=== PATIENT | female | born 2000 | race Caucasian/White ===

== ENCOUNTER 2020-12-29 15:30 | Inpatient (IN) | payer OTHER ==
[~2020-12-29] VITALS: Ht 167.6 cm; Wt 113.6 kg
[2020-12-29] MEDS ORDERED: METF500 PO (16:19)
[2020-12-29] MEDS ORDERED: PRENATAL TABLE1 EAC2 PO (16:19)
[2020-12-29] MEDS ORDERED: IRON18 MG PO (16:19)
[2020-12-29] MEDS ORDERED: ACET325 (16:20)
[2020-12-29] MEDS ORDERED: PYRI100 PO (16:20)
[2020-12-29] MEDS ORDERED: UNASYN (16:20)
[2020-12-29 16:29] LABS: SARS-Cov-2 (COVID-19) PCR, MMC NEGATIVE (NEGATIVE)
[2020-12-29 16:46] LABS: BASOPHILS ABSOLUTE AUTO 0.04 K/mm3 (0.00-0.23); BASOPHILS PERCENT AUTO 0 % (0-2); EOSINOPHILS ABSOLUTE AUTO 0.03 K/mm3 (0.00-0.68); EOSINOPHILS PERCENT AUTO 0 % (0-6); Hematocrit 38.5 % (33.0-51.0); Hemoglobin 12.6 g/dL (11.5-16.0); IMMATURE GRAN ABSOLUTE AUTO 0.08 K/mm3 (0.00-0.10); IMMATURE GRAN PERCENT AUTO 1 % (0-1); LYMPHOCYTES ABSOLUTE AUTO 1.53 K/mm3 (0.84-5.20); LYMPHOCYTES PERCENT AUTO 12 % (21-46); MONOCYTES ABSOLUTE AUTO 0.92 K/mm3 (0.16-1.47); MONOCYTES PERCENT AUTO 7 % (4-13); Mean Corpuscular HGB Conc 32.7 g/dL (31.5-36.5); Mean Corpuscular Volume 82 fL (80-100); Mean Platelet Volume 12.4 fL (9.1-12.4); NEUTROPHILS ABSOLUTE AUTO 9.75 K/mm3 (1.96-9.15); NEUTROPHILS PERCENT AUTO 79 % (41-73); Platelet Count 231 K/mm3 (150-400); RDW Coefficient Variation 15.5 % (11.7-14.2); RDW Standard Deviation 46.8 fL (35.1-46.3); Red Blood Cell Count 4.67 M/mm3 (3.80-5.20); White Blood Cell Count 12.35 K/mm3 (4.00-11.30)
--- NOTE | 2020-12-29 17:47 | NUR ---
12/29/20 1747 Parris Quinonez 1534 DEIVERY VIABLE FEMALE INFANT WEIGHT 3600 7# 15OZ, LENGTH 19.5 INCHES, HEAD 14.25 INCHES, CHEST 14 INCHES, APGARS 8/9, UMBILCAL CORD SEGMENT SENT WITH RT FOR CORD GASES, UMBILICAL CORD BLOOD COLLECTED FOR TYPE AND RH GIVEN TO RN, PLACENTA COLLECTED AND SENT TO PATHOLOGY
[2020-12-29 17:57] LABS: PCO2 Cord - Arterial 56.7 mmHg (40-50); pH Cord - Arterial 7.27 (7.28-7.35)
[2020-12-29 17:59] LABS: PO2 Cord - Arterial > 13 mmHg (16-20); PO2 Cord - Venous 19.7 mmHg (28-32); pH Umbilical Cord - Venous 7.33 (7.26-7.35)
[2020-12-30 07:11] LABS: Hematocrit 34.6 % (33.0-51.0); Hemoglobin 11.1 g/dL (11.5-16.0); Mean Corpuscular HGB 27.4 pg (26.0-34.0); Mean Corpuscular HGB Conc 32.1 g/dL (31.5-36.5); Mean Corpuscular Volume 85 fL (80-100); Mean Platelet Volume 11.9 fL (9.1-12.4); Platelet Count 173 K/mm3 (150-400); RDW Coefficient Variation 15.8 % (11.7-14.2); RDW Standard Deviation 49.1 fL (35.1-46.3); Red Blood Cell Count 4.05 M/mm3 (3.80-5.20); White Blood Cell Count 9.73 K/mm3 (4.00-11.30)
[2020-12-31] MEDS ORDERED: IBUP800 PO (09:35)
[2020-12-31] MEDS ORDERED: Percocet 5-3251 EACH PO (09:35)
--- NOTE | 2020-12-31 11:14 | NUR ---
PT AGREES TO MMR, ORDERED VACCINE FROM [facility]
== END 2020-12-31 12:33 | disposition home or self-care (01) | DRG 788 ==
LOC: BC 15:30 → SURS 18:00 → BC 20:08
PROVIDERS: ADMIT Family Medicine
PROC: 10D00Z1 Extraction of Products of Conception, Low, Open Approach (ICD-10-PCS; principal; 2020-12-29 18:00)
DX: O41.03X0 Oligohydramnios, third trimester, not applicable or unspecified (principal); Z3A.37 37 weeks gestation of pregnancy; Z37.0 Single live birth; O24.425 Gestational diabetes mellitus in childbirth, controlled by oral hypoglycemic drugs; Z20.822 Contact with and (suspected) exposure to COVID-19; O32.1XX0 Maternal care for breech presentation, not applicable or unspecified; Z79.84 Long term (current) use of oral hypoglycemic drugs; Z87.891 Personal history of nicotine dependence; Z98.890 Other specified postprocedural states
CPT/HCPCS: 36415; 82803; 82947; 85025; 85027; 86850; 86900; 86901; 87081; 87150; 88307; 90707; A9270; J0694; J1885; J2370; J2590; J2765; J3010; J7120; U0004

== ENCOUNTER → 2020-12-29 | Outpatient (CLI) | payer OTHER ==
[~2020-12-29] MED LIST: ACET325; IBUP800 PO; IRON18 MG PO; METF500 PO; PRENATAL TABLE1 EAC2 PO; PYRI100 PO; Percocet 5-3251 EACH PO; UNASYN
== END ==
LOC: LAB 10:49 → LAB SHORT 10:49
DX: O41.03X0 Oligohydramnios, third trimester, not applicable or unspecified (principal); O32.1XX0 Maternal care for breech presentation, not applicable or unspecified; O24.414 Gestational diabetes mellitus in pregnancy, insulin controlled; Z3A.37 37 weeks gestation of pregnancy
CPT/HCPCS: 87081; 87150